=== PATIENT | female | born 1950 | race Caucasian/White ===

== ENCOUNTER 2020-12-28 07:45 | Day surgery (SDC) | payer OTHER ==
[~2020-12-28] VITALS: Ht 165.1 cm; Wt 67.1 kg
[~2020-12-28 07:45] MED LIST: ALBU108A14 IN; ATO40T PO; BACL20TA PO; BUSP15TA60 PO; CHOL100055 PO; DULO20CA PO; FLUT100I IN; GABA100C9 PO; HYDR-4072 PO; HYDR25TA5 PO; IBUP800T27 PO; LEVO125T7 PO; METO25TA5 PO; PANT1INJ3 PO; TIOTCAP IN; TRAZ-181 PO
[2020-12-28] MEDS ORDERED: CLINDAMYCIN 600MG IV 50 ML IV ONE (09:37)
[2020-12-28] MEDS ORDERED: BUPIVACAINE HCL 0.25% P/F 10 ML VIAL ONE (10:21)
[2020-12-28] MEDS ORDERED: VANCOMYCIN HCL 1000 MG VL ONE (10:23)
[2020-12-28] MEDS ORDERED: LIDOCAINE W/ EPINEPHRINE 1% 20ML VIAL ONE (10:24)
[2020-12-28] MEDS ORDERED: MORPHINE SULF(PF) 0.5MG/ML 10ML VIAL ONE (10:34)
[2020-12-28] MEDS ORDERED: POTASSIUM CHL 20MEQ/100ML 100 ML IV ONE ×2 (10:48→11:00)
[2020-12-28] MEDS ORDERED: PROPOFOL 10 MG/ML 20 ML IV ONE ×2 (10:59)
[2020-12-28] MEDS ORDERED: fentaNYL CITRATE 100 MCG/2 ML VL ONE (10:59)
[2020-12-28] MEDS ORDERED: MIDAZOLAM HCL 1MG/1ML-2 ML VIAL ONE (10:59)
[2020-12-28] MEDS ORDERED: ONDANSETRON HCL 4 MG/2 ML VIAL IV PRN (11:45)
[2020-12-28] MEDS ORDERED: HYDROmorphone HCL 2 MG/ML VL IV PRN (11:45)
[2020-12-28 12:40] VITALS: BP 137/84
== END 2020-12-28 13:00 | disposition home or self-care (01) ==
LOC: SUR 07:45
PROVIDERS: ATTEND Anesthesiology Pain Medicine
DX: M54.5 Low back pain (principal); M48.062 Spinal stenosis, lumbar region with neurogenic claudication; J45.909 Unspecified asthma, uncomplicated; E07.9 Disorder of thyroid, unspecified; I10 Essential (primary) hypertension; G35 Multiple sclerosis; K21.9 Gastro-esophageal reflux disease without esophagitis; Z20.822 Contact with and (suspected) exposure to COVID-19; Z98.890 Other specified postprocedural states; Z88.0 Allergy status to penicillin; Z87.891 Personal history of nicotine dependence
CPT/HCPCS: 22869; 22870; 72100; C1821; J1170; J2250; J2270; J2704; J3010; J3370; J3480; J3490; U0003; 76000